=== PATIENT | male | born 1970 | race Caucasian/White ===

== ENCOUNTER 2017-12-11 15:12 | Emergency (ER) | payer BC, OTHER ==
[~2017-12-11] VITALS: Ht 175.3 cm; Wt 190.5 kg
[2017-12-11] MEDS ORDERED: TESSALON PERLE100 MG PO (16:36)
[2017-12-11] MEDS ORDERED: VENTOLIN HFA 1818 GM INH (16:36)
[2017-12-11 17:03] VITALS: BP 130/89
[2018-05-29] MEDS ORDERED: ASPIR 8181 MG PO (09:42)
[2018-05-29] MEDS ORDERED: LISINOPRIL10 MG PO (09:42)
== END 2017-12-11 17:04 | disposition home or self-care (01) ==
LOC: ER 15:12
DX: J06.9 Acute upper respiratory infection, unspecified (principal); J98.01 Acute bronchospasm; K21.9 Gastro-esophageal reflux disease without esophagitis; I10 Essential (primary) hypertension

== ENCOUNTER → 2018-05-20 | Outpatient (CLI) | payer BC, OTHER ==
[~2018-05-20] MED LIST: TESSALON PERLE100 MG PO; VENTOLIN HFA 1818 GM INH
--- NOTE | ~2018-05-20 | 2DMMODE ---
[facility] [address] [place] [address] 2 D/M-MODE ECHOCARDIOGRAM Name: LEAVITTNATHALY LYNN Room #: REG [facility]ALTHE[facility]#: [id number] Admission: 05/20/18 Attend Phys: Nam Hoffmann Discharge: Date of : 68 Date of Service: 05/20/18 1142 Report #: [id number] THIS REPORT FOR: //name// APPROVED REPORT Study performed: 05/20/2018 10:14:29 EXAM: Comprehensive 2D, Doppler, and color-flow Echocardiogram Patient Location: Out-Patient Room #: Echo lab 1 BSA: 2.67 HR: 66 bpm BP: 149/93 mmHg Other Information Study Quality: Fair Indications Pre-Op Hypertension/HDD 2D Dimensions RVDd: 41.27 mm LVEF(%): 49.25 (>50%) IVSd: 7.57 (7-11mm) LVOT Diam: 21.47 (18-24mm) LVDd: 61.89 mm PWd: 6.03 (7-11mm) Ascending Ao: 28.26 (22-36mm) LVDs: 46.15 (25-40mm) Candelaria's LVEF: 49.25 % Volumes Left Atrial Volume (Systole) Single Plane 4CH: 45.90 mL Single Plane 2CH: 59.90 mL LA ESV Index: 21.00 mL/m2 Aortic Valve AoV Peak Juan.: 1.41 m/s AO Peak Gr.: 7.96 mmHg LVOT Max P.86 mmHg LVOT Max V: 0.98 m/s JUSTIN Vmax: 2.52 cm2 Mitral Valve E/A Ratio: 1.1 MV Decel. Time: 153.24 ms MV E Max Juan.: 0.79 m/s [facility] [email or web address] [address] 2 D/M-MODE ECHOCARDIOGRAM Name: NATHALY LEAVITT Room #: REG ON LICENSE OF [facility]#: [id number] Admission: 05/20/18 Attend Phys: Nam Hoffmann Discharge: Date of : 68 Date of Service: 05/20/18 1142 Report #: [id number] A Juan.: 0.72 m/s MV PHT: 44.44 ms IVRT: 92.27 ms Pulmonary Valve PV Peak Juan.: 1.04 m/s PV Peak Gr.: 4.35 mmHg Pulmonary Vein P Vein S: 0.62 m/s P Vein A: 0.27 m/s P Vein D: 0.42 m/s P Vein A Dur.: 129.2 msec P Vein S/D Ratio: 1.48 Tricuspid Valve TR Peak Jaun.: 2.30 m/s TR Peak Gr.: 21.13 mmHg PA Pressure: 26.00 mmHg Left Ventricle The left ventricle is normal size. There is normal LV segmental wall motion. There is normal left ventricular wall thickness. The left ventricular systolic function is normal. The left ventricular ejection fraction is within the normal range. LVEF is 55-60%. The left ventricular diastolic function is normal. Right Ventricle The right ventricle is normal size. The right ventricular systolic function is normal. Atria The left atrium size is normal. Right atrium is at the upper limits of normal. Aortic Valve The aortic valve is normal in structure. The Aortic valve is sclerotic. No aortic regurgitation is present. There is no aortic valvular stenosis. Mitral Valve The mitral valve is normal in structure. There is no mitral valve regurgitation noted. No evidence of mitral valve stenosis. Tricuspid Valve The tricuspid valve is normal in structure. There is trace tricuspid regurgitation. Estimated PAP 26 mmHg. There is no pulmonary hypertension. [address] [address] 2 D/M-MODE ECHOCARDIOGRAM Name: NATHALY LEAVITT Room #: REG [id number] Admission: 05/20/18 Attend Phys: Nam Hoffmann Discharge: Date of : 68 Date of Service: 05/20/18 1142 Report #: [id number] Pulmonic Valve The pulmonary valve is normal in structure. There is no pulmonic valvular regurgitation. Great Vessels The aortic root is normal in size. IVC is normal in size and collapses >50% with inspiration. Pericardium There is no pericardial effusion. <Conclusion> The left ventricle is normal size. LVEF is 55-60%. Right atrium is at the upper limits of normal. The aortic valve is normal in structure. The Aortic valve is sclerotic. No aortic regurgitation is present. There is no aortic valvular stenosis. The mitral valve is normal in structure. There is no mitral valve regurgitation noted. The tricuspid valve is normal in structure. There is trace tricuspid regurgitation. Estimated PAP 26 mmHg. There is no pulmonary hypertension. The pulmonary valve is normal in structure. There is no pericardial effusion. <ELECTRONICALLY SIGNED> By: aNm Benites MD 05/20/18 1142 1142 1142 Nam Benites MD /INF
== END ==
LOC: CV 06:04
DX: Z01.810 Encounter for preprocedural cardiovascular examination (principal); I35.8 Other nonrheumatic aortic valve disorders; I10 Essential (primary) hypertension

== ENCOUNTER → 2018-11-25 | Outpatient (CLI) | payer OTHER ==
[~2018-11-25] MED LIST changes: +ASPIR 8181 MG PO; +LISINOPRIL10 MG PO
--- NOTE | 2018-11-25 16:52 | EKG ---
[place] [address] [facility] [place] [address] ELECTROCARDIOGRAM REPORT Name: NATHALY LEAVITT Room #: REG CLI [facility]#: [id number] Admission: 11/25/18 Attend Phys: Waylon Pinon MD, F Discharge: Date of : 68 Report #: [id number] THIS REPORT FOR: //name// [facility] Test Date: 2018-11-25 Test Time: 12:45:21 Pat Name: NATHALY LEAVITT Department: Room: Gender: Porter Head: Davi PRIETO : 1970 Requested By: Waylon Pinon Order Number: [id number] MD: Rei Silva Measurements Intervals Clayton Rate: 72 P: 24 SC: 170 QRS: -36 QRSD: 115 T: 21 QT: 387 QTc: 424 Interpretive Statements Sinus rhythm Nonspecific IVCD with LAD Compared to ECG 05/29/2018 10:02:10 No significant changes Electronically Signed On 11-25-2018 16:52:12 [employer]ATMAN by Rei Silva [email or web address] <ELECTRONICALLY SIGNED> By: Rei Silva MD, [facility] 11/25/18 1652 D: 01/5 1245 Rei Silva MD, FACC /EPI
== END ==
LOC: CV 11:36
DX: Z01.818 Encounter for other preprocedural examination (principal)

== ENCOUNTER 2018-12-17 05:30 | Day surgery (SDC) | payer OTHER ==
[~2018-12-17] VITALS: Ht 175.3 cm; Wt 165.1 kg
[~2018-12-17 05:30] MED LIST changes: +ADULT ONE DAI200 MCG PO; +LISINOPRIL-HCT1 EAC2 PO; +OMEPRAZOLE40 MG PO
[2018-12-17 07:37] LABS: CALCIUM 9.1 mg/dL (8.5-10.1); CREATININE 1.3 mg/dL (0.7-1.3); POTASSIUM 3.9 mmol/L (3.5-5.1)
[2018-12-17 08:00] VITALS: BP 147/84
--- NOTE | 2018-12-17 14:00 | NUR ---
ASSUMED CARE OF PT AT 14:00. ARRIVED IN STABLE CONDITION FROM PACU S/P LAP SLEEVE. 5 LAP SITES WITH DERMABOND INTACT, NO BLEEDING OR DRAINAGE. SEVERAL SKIN TAG REMOVAL SITES AROUND THIGH AND ARMPITS, SOME DRIED BLOOD NOTED. PT ON 2 L NC, NO OXYGEN USE TO HOME. NO SOA OR CHEST PAIN. C/O CHRONIC BACK PAIN /, PAIN MEDS GIVEN ORDERED. AND DTR AT BEDSIDE. STRICT NPO UNTIL SWALLOW TEST IN AM. COMPLAINING OF DRY MOUTH, DAMP WASHCLOTHS GIVEN FOR COMFORT. WILL CONTINUE TO MONITOR.
[2018-12-17 14:23] VITALS: BP 133/79
--- NOTE | 2018-12-17 16:30 | NUR ---
PT STARTED COMPLAINING OF NEW ONSET CHEST PAIN RADIATING TO LEFT ARM. DR. FERRARI NOTIFIED, NEW ORDERS FOR STAT EKG AND TROPONIN.
--- NOTE | 2018-12-17 17:28 | NUR ---
NORMAL EKG AND NEGATIVE TROPONIN. PT IN STABLE CONDITION. PHYSICIAN AWARE. WILL CONTINUE TO MONITOR.
[2018-12-17 19:44] VITALS: BP 104/67
[2018-12-18 05:47] LABS: ABSOLUTE NEUTROPHILS 13.8 thou/uL (1.4-8.2); BASOPHILS 0.3 % (0.0-2.0); EOSINOPHILS 0.1 % (0.0-3.0); HEMATOCRIT 40.9 % (42.0-52.0); HEMOGLOBIN 13.7 gm/dL (14.0-18.0); LYMPHOCYTES 10.8 % (24.0-44.0); MCH 30.8 pg (26.0-34.0); MCHC 33.6 g/dL (28.0-37.0); MCV 91.9 fL (80.0-100.0); PLATELET COUNT 276 thou/uL (150-400); POLYS 83.8 % (36.0-66.0); RBC 4.45 mil/uL (4.50-6.00); RDW 13.2 % (10.5-14.5); WBC 16.4 thou/uL (4.0-11.0)
[2018-12-18 06:01] LABS: CALCIUM 8.7 mg/dL (8.5-10.1); CREATININE 1.4 mg/dL (0.7-1.3); POTASSIUM 3.9 mmol/L (3.5-5.1)
[2018-12-18 06:47] VITALS: BP 125/73
[2018-12-18 07:46] VITALS: BP 131/72
--- NOTE | 2018-12-18 08:27 | EKG ---
[place] [address] [employer] [facility] [place] [address] ELECTROCARDIOGRAM REPORT Name: NATHALY LEAVITT Room #: 430-P [facility] M.R.#: [id number] ������������������ Admission: 12/17/18 ������������������ Attend Phys: Waylon Pinon MD, F Discharge: ������������������ Date of : 68 Report #: [id number] ����������������������������������������������������������������� [id number] THIS REPORT FOR: //name// [facility] Test Date: 2018-12-17 Test Time: 16:38:26 Pat Name: NATHALY LEAVITT Department: Room: 430 P Gender: M Comb Tender: Reinier ABRAHAM : 1970 Requested By: Chirag Lockett Order Number: [id number] MD: Rei Silva Measurements Intervals [place] Rate: 91 P: 47 ME: 185 QRS: -22 QRSD: 111 T: 20 QT: 351 QTc: 432 Interpretive Statements Sinus rhythm Abnormal R-wave progression, early transition Inferior infarct, old Compared to ECG 11/25/2018 12:45:21 No significant change was found Electronically Signed On 12-18-2018 8:27:01 METAPHYSICS TEACHER by Rei Silva [email or web address] ��������������������������������������������� <ELECTRONICALLY SIGNED> ���������������������������������������� By: Rei Silva MD, [facility] ��������������������������������������������� 12/18/18 0827 1638 1638 Rei Silva MD, [facility] /EPI
--- NOTE | 2018-12-18 08:32 | NUR ---
0815-Discharge teaching done per Post Operative Sleeve Gastrectomy Instruction handout(see hard copy). Patient states understanding of all information given,denies further questions.
--- NOTE | 2018-12-18 08:36 | EKG ---
[address] [place] [address] ELECTROCARDIOGRAM REPORT Name: NATHALY LEAVITT Room #: 430-P [facility]..#: [id number] ������������������ Admission: 12/17/18 ������������������ Attend Phys: Waylon Pinon MD, F Discharge: ������������������ Date of : 68 Report #: [id number] ����������������������������������������������������������������� [id number] THIS REPORT FOR: //name// [facility] Test Date: 2018-12-18 Test Time: 07:03:12 Pat Name: NATHALY LEAVITT Department: Room: 430 P Gender: M Warning Analyst: JODIE : 1970 Requested By: Waylon Pinon Order Number: [id number] MD: Rei Silva Measurements Intervals Hodges Rate: 81 P: 68 AK: 170 QRS: -18 QRSD: 118 T: 28 QT: 371 QTc: 431 Interpretive Statements Sinus rhythm Incomplete right bundle branch block Compared to ECG 11/25/2018 12:45:21 No significant change was found Electronically Signed On 12-18-2018 8:35:49 SENIOR UI WEB DEVELOPER by Rei Silva [email or web address] ��������������������������������������������� <ELECTRONICALLY SIGNED> ���������������������������������������� By: Rei Silva MD, [facility] ��������������������������������������������� 12/18/18 0835 2 2 Rei Silva MD, [facility] /EPI
--- NOTE | 2018-12-18 09:34 | NUR ---
0920-UGI results per Dr Alvarez shows no leak.
--- NOTE | 2018-12-18 10:40 | NUR ---
Post-op discharge diet instruction provided to Pt. Handouts were provided for Week 1 & 2 diet (see hard copies) plus vitamin recommendations. Pt gave verbal understand of all information given and denies any questions at this time. This RD will remain available PRN
--- NOTE | 2018-12-18 11:43 | O ---
[facility] [place] [address] OPERATIVE REPORT Name: NATHALY LEAVITT Room #: 430-P [facility]..#: [id number] Admission: 12/17/18 ������������������ Attend Phys: Waylon Pinon MD, F Discharge: ������������������ Date of : 68 Report #: [id number] THIS REPORT FOR: //name// CC: Clarence Pinon DATE OF SERVICE: 12/17/2018 SURGEON: Waylon Pinon M.D. BRANCH LEAD: Vinnie Fernández D.O. PREOPERATIVE DIAGNOSES: 1. Super morbid obesity (BMI 54). 2. Multiple skin tags. 3. Hypertension. 4. Depression. 5. Arthritis. 6. Gastroesophageal reflux disease. POSTOPERATIVE DIAGNOSES: 1. Super morbid obesity (BMI 54). 2. Multiple skin tags. 3. Hypertension. 4. Depression. 5. Arthritis. 6. Gastroesophageal reflux disease. PROCEDURES: 1. Laparoscopic sleeve gastrectomy with EGD. 2. Excision of multiple skin tags. ANESTHESIA: General endotracheal anesthesia and local anesthetic. ESTIMATED BLOOD LOSS: 5 mL. SPECIMEN: Lateral stomach. COMPLICATIONS: None appreciated. INDICATIONS FOR PROCEDURE: This is a 48-year-old male patient of Dr. Clarence Molina who stands 5 feet 9 inches and weighed 381 pounds that is most recent office visit with a BMI of 56.4. He has had difficulty with weight since he sustained an ankle injury in August 2009, which has limited his activity and disability to exercise. He has tried numerous weight loss programs and plans with no lasting success and the most weight the patient has lost is 20 pounds [facility] [address] [place] [address] OPERATIVE REPORT Name: NATHALY LEAVITT Room #: 430-P [facility] [place].R.#: [id number] Admission: 12/17/18 ������������������ Attend Phys: Waylon Pinon MD, F Discharge: ������������������ Date of : 68 Report #: [id number] with any single modality. Any amount of the patient has lost, he has quickly regained plus additional weight after stopping the modality. He has been cleared from Bariatric Surgery, multidisciplinary standpoint and presents today for laparoscopic sleeve gastrectomy with EGD. He also has multiple skin tags, which he would like to have removed. This will be performed under the same anesthetic. OPERATIVE FINDINGS: On EGD, the patient had a normal-appearing esophagus down to the GE junction and Z-line. The stomach and duodenum were without polyps, masses, diverticula or ulcers. On retroflexion of the scope within the antrum of the stomach, a hiatal hernia was not appreciated. Laparoscopically, the patient had a mildly enlarged liver without nadya steatohepatitis. The stomach was enlarged as expected. The small bowel and colon in the surrounding area appeared otherwise normal. The gastric sleeve staple line was located 4 cm lateral/proximal to the pylorus, 3 cm lateral to the incisura of the stomach and 1 cm lateral to the GE junction. The gastric sleeve leak test was negative, whereby no air bubbles were seen forming within the Tisseel along the staple line with insufflation of carbon dioxide into the gastric sleeve. No significant abdominal pathology was identified. The excised stomach held 1500 mL of fluid on the backtable with passive stretch. The patient has multiple benign-appearing skin tags in his bilateral axillae as well as bilateral upper medial thighs. At least 20 skin tags were excised leaving several in place as the skin tags in his groin were contiguous patch skin tags. At the conclusion of the operation, sponge, needle and instrument counts were correct. DESCRIPTION OF PROCEDURE IN DETAIL: After the benefits and risks of the procedure were explained to the patient which include but are not limited to risks of bleeding, infection, postoperative pain, postoperative expectations and risks of DVT and pulmonary embolus, informed consent was obtained. The patient was identified in the preoperative holding area. The patient was given IV antibiotics as documented in the chart in line with SCIP protocol. The patient was then taken to the operating room and was placed in the supine position. The patient was given IV sedation and was intubated without incident. SCDs were placed on the patient's bilateral lower extremities prior to induction of anesthesia. The patient had been placed in the modified low lying dorsal lithotomy position in stirrups on the beanbag. The beanbag and the patient were taped to the bed to secure the patient. A time-out was then performed to correctly identify the patient and procedure. An orogastric tube was placed by anesthesia. A bite block was placed and the fiberoptic EGD scope was passed into the patient's oropharynx, down the esophagus, into the stomach, and into the third portion of the duodenum. Findings are as noted above. The scope was slowly withdrawn into the antrum and [address] [address] OPERATIVE REPORT Name: NATHALY LEAVITT Room #: 430-P [facility] M.R.#: [id number] Admission: 12/17/18 ������������������ Attend Phys: Waylon Pinon MD, F Discharge: ������������������ Date of : 68 Report #: [id number] the scope was retroflexed. The hiatus was visualized. The scope was then straightened and the end of the gastroscope was placed at the pylorus. The stomach was decompressed with the scope. The patient's abdomen was then prepped and draped in the standard sterile fashion with surgical prep. Local anesthetic was infiltrated into the skin and subcutaneous tissue in the left supraumbilical area where a sharp #15-blade scalpel was used to make a 5-mm incision. The 5-mm Visiport was placed intraperitoneally with the 5-mm 0-degree angled laparoscope. Pneumoperitoneum was then achieved with insufflation of carbon dioxide to 15 mmHg. A 5-mm 30-degree angled laparoscope was then inserted. The 15-mm port was placed in the right supraumbilical area after local anesthetic was infiltrated into the skin and subcutaneous tissue and an appropriately sized incision was made. Two additional 5 mm ports were placed in the left abdomen after local anesthetic was infiltrated and incisions were made. All ports were placed under direct visualization. The patient was then placed in reverse Trendelenburg position. Local anesthetic was infiltrated into the skin and subcutaneous tissue in the subxiphoid area and a 5-mm incision was made through which a 5-mm obturator was passed into the abdominal cavity through the fascia to create a passageway for the Sidney liver retractor. The retractor was placed to retract the liver anteriorly. The retractor was held in place with the Iron Servomechanism Designer apparatus. All abdominal adhesions were then taken down with blunt dissection, sharp dissection and judicious use of the ultrasonic dissector. The gastrosplenic ligament and short gastric vessels were then divided using the ultrasonic dissector with appropriate traction. Bleeding points were made hemostatic with the ultrasonic dissector. Dissection was carried proximally up to the left uday of the diaphragm. The distal end point of dissection was then measured at 4 cm proximal to the pylorus. The gastrocolic ligament was dissected to that level. The stomach was then rotated medially to visualize and take down any posterior attachments/adhesions to the stomach. The adhesions were dissected with a combination of sharp dissection and use of the ultrasonic dissector. The endoscope was then slightly withdrawn to place it along the lesser curvature of the stomach to serve as a 34-Montserratian bougie. Suction was applied to the orogastric tube which was then removed, leaving the endoscope in place. The gastric sleeve was then created. Two black loads of the powered endoscopic MERI stapler buttressed with Blanca-Strips were used to staple and divide the stomach 4 cm proximal to the pylorus. Additional green loads buttressed with Blanca-strips were used to staple off the remainder of the stomach using the endoscope as the bougie. Care was taken to ensure that greater than 3 cm of space was present between the incisura and the staple line. The stomach was fully transected and placed in the right upper quadrant of the abdomen for later removal. 10 mL of Tisseel was applied to the entire length of the staple line with the Duplospray aerosolizer to fully ensure hemostasis. [address] [address] OPERATIVE REPORT Name: NATHALY LEAVITT Room #: 430-P [facility]..#: [id number] Admission: 12/17/18 ������������������ Attend Phys: Waylon Pinon MD, F Discharge: ������������������ Date of : 68 Report #: [id number] The leak test was performed next. The sleeve was insufflated with the endoscope which was slowly withdrawn. No air bubbles were seen forming within the Tisseel laparoscopically. Endoluminally, no bleeding was seen. The sleeve was well-contoured with no stricture identified. The stomach was fully decompressed and the scope was slowly withdrawn. The Sidney liver retractor was then loosened from the Iron Servomechanism Designer apparatus and it was removed without difficulty. The stomach was then removed from the patient's body through the 15-mm port under direct visualization. A small amount stretching of the fascia was required to create an opening large enough for removal of the stomach. After its removal, the 15-mm port site fascial opening was closed with an 0-PDS suture using the Flaquito-Guerrero laparoscopic fascial closure device. All ports were removed after the abdominal cavity was desufflated. The fascial suture was tied. Interrupted subcuticular 4-0 Monocryl sutures and Dermabond were used to close all skin incisions. The various areas containing the skin tags were prepped with Betadine. Each skin tag was removed in a similar fashion. The skin tag was elevated with forceps and sharply excised off of the skin with Metzenbaum scissors. The skin was then cauterized for hemostasis. Multiple skin tags were also cauterized to later slough off. Triple antibiotic ointment was applied to the areas where skin tags had been present and/or cauterized. The patient tolerated the procedure well. He was awakened, extubated, and taken to the recovery room in stable condition with no apparent intraoperative complications. ��������������������������������������������� <ELECTRONICALLY SIGNED> ���������������������������������������� By: Waylon Pinon MD, FACS ��������������������������������������������� 12/18/18 1143 2116 2252 Waylon Pinon MD, FACS /nt
[2018-12-18 12:56] VITALS: BP 131/72
--- NOTE | 2018-12-18 16:06 | PATH ---
[facility] [address] [place] [address] PATHOLOGY RPT PROCEDURE Name: WILTON TA Room #: 430-P [facility] M.R.#: [id number] ������������������ Admission: 12/17/18 ������������������ Date of : 68 Discharge: Report #: [id number] Path Case #: [id number] [facility] Accession Number: [id number] . 01 Material submitted: . STOMACH POST/GASTRIC SLEEVE . 01 Clinical history: . Morbid obesity . 02 Diagnosis: Stomach, partial stomach, partial sleeve gastrectomy: - Focal reactive changes. - Negative for active inflammation, intestinal metaplasia, atrophy or dysplasia. . (IUV:mml; 12/18/2018) QLM/12/18/2018 . 02 Electronically signed: . Natalie Schneider MD, Pathologist NPI- [id number] . 01 Gross description: . The specimen is received in formalin, labeled "Wilton Ta, stomach post/gastric sleeve". Received is a partial gastrectomy specimen with a stapled margin of resection measuring 22.8 x 5.5 x 2.2 cm in greatest dimensions. The serosal surface is pink-negrete and glistening in appearance. Opening the specimen reveals pink-negrete mucosa with normal rugal folds. There are multiple hemorrhagic patches present ranging in size from 0.2 to 0.6 cm in maximum dimensions. A single possible polyp is identified measuring 0.3 cm in maximum dimensions. The specimen is submitted representatively in cassette A1, to include the possible polyp and a section through a hemorrhagic area. (CAA; 12/17/2018) QAC/QAC . 02 Pathologist provided ICD-10: K31.9, E66.01 . 02 CPT . 218887 Specimen Comment: A courtesy copy of this report has been sent to Specimen Comment: [phone]. Specimen Comment: Report sent to Performed at: [address] [place] [address] PATHOLOGY RPT PROCEDURE Name: WILTON TA Room #: 430-P [facility] M.R.#: [id number] ������������������ Admission: 12/17/18 ������������������ Date of : 68 Discharge: Report #: [id number] Path Case #: [id number] [address] [facility] [address], [place], [place] [id number] MD Jose Juan Byrd MD Phone: [phone] Performed at: [address] [id number] MD Natalie Schneider MD Phone: [phone]
== END 2018-12-18 15:00 | disposition still patient (30) ==
LOC: 4E 05:30 → TBA 05:30 → OR 05:30 → 4E 14:00 → ENTRNSPT 12-18 13:07 → EDTRNSPTSTS 12-18 13:10 → OR 12-18 15:00
PROVIDERS: Surgery
DX: E66.01 Morbid (severe) obesity due to excess calories (principal); L91.8 Other hypertrophic disorders of the skin; K21.9 Gastro-esophageal reflux disease without esophagitis; I10 Essential (primary) hypertension; F32.9 Major depressive disorder, single episode, unspecified; M19.90 Unspecified osteoarthritis, unspecified site; F41.9 Anxiety disorder, unspecified; G47.30 Sleep apnea, unspecified; Z98.890 Other specified postprocedural states; Z68.43 Body mass index [BMI] 50.0-59.9, adult; Z79.899 Other long term (current) drug therapy
CPT/HCPCS: 10783; 50010; 50101; 50222; 50249; 50386; 50555; 50739; 50740; 50962; 51437; 52182; 52265; 53307; 53311; 54022; 54118; 56462; 56525; 56526; 57092; 62110; 62900; 65131; 70005